=== PATIENT | female | born 1995 | race Caucasian/White ===

== ENCOUNTER 2024-07-14 07:09 | Day surgery (SDC) | payer MEDICAID, OTHER ==
[2024-07-11 12:04] VITALS: BMI 28.3
[2024-07-14 07:29] VITALS: RESP 16; TEMP 97.2
[2024-07-14] MEDS: LACTATED RINGERS 1,000 ML IV SCH (07:43)
[2024-07-14] MEDS: IV FLUID CONTINUATION 1,000 ML IV ONE (07:46)
[2024-07-14] MEDS ORDERED: LIDOCAINE 1% INJ 10MG/ML (20 ML MDV) ONE (07:52)
[2024-07-14] MEDS ORDERED: PROPOFOL 10 MG/ML 20 ML VIAL IV ONE (07:52)
--- NOTE | 2024-07-14 08:08 | P.PCN ---
Date of Procedure: 07/14/24 Procedure(s) Performed: Brief history: Patient is a pleasant 29-year-old white female scheduled for an elective upper endoscopy as well as colonoscopy as a part of evaluation of abdominal pain and change in bowel habits for the last 3 years duration. He has chronic diarrhea with 3-4 bowel movements daily but no blood or mucus in the stool. Recent testing revealed positive serology for celiac disease. Procedure performed: Esophagogastroduodenoscopy with biopsy Colonoscopy with biopsy Preoperative diagnosis: Abdominal pain Chronic diarrhea Anesthesia: MAC Procedure: After informed consent was obtained from the patient was brought into the endoscopy unit and IV sedation was administered by anesthesia under continuous monitoring. Initially upper endoscopy was done. The Olympus GF 160 video endoscope was inserted inserted into the mouth and esophagus intubated without any difficulty and was gradually advanced into the stomach and duodenum and carefully examined. The bulb and second part of the duodenum appeared normal. Biopsies were done from the duodenum to rule out celiac disease. The scope was then withdrawn into the stomach adequately insufflated with air and upon careful examination the antrum and mild gastritis and biopsies were done from this area. Mucosa d body, cardia and fundus appeared normal. The scope was then withdrawn into the esophagus. The GE junction was located at 40 cm to the incisors. It appeared regular with no erythema erosions or ulcerations. Rest of the esophagus appeared normal. Patient tolerated the procedure well. At this time the patient continued to remain sedation. Initial digital rectal examination was normal. Olympus CF 160 video colonoscope was then inserted into the rectum and gradually advanced to the cecum without any difficulty. Careful examination was performed as the scope was gradually being withdrawn. The prep was excellent. Terminal ileum was intubated and 20 cm visualized appeared normal. The cecum, ascending colon, transverse colon, descending colon, sigmoid colon and rectum appeared normal. And biopsies were done from the ascending and descending colon rule out multiple/collagenous colitis retroflexion was performed in the rectum and no lesions were noted. Patient tolerated the procedure well. Impression: 1. Upper endoscopy revealed mild antral gastritis but no definite evidence of peptic ulcer disease 2. Colonoscopy is within normal limits with no active colorectal neoplasia Recommendations: Findings of this examination were discussed with the patient as well as her family. She was advised to follow-up with the biopsy results. Follow-up in the office in 2 weeks.
[2024-07-14 08:36] VITALS: BP 114/78; PULSE 58
== END 2024-07-14 08:55 | disposition home or self-care (01) ==
LOC: ORWHC2ENDO 07:09
PROVIDERS: ATTEND Internal Medicine Gastroenterology
DX: D72.820 Lymphocytosis (symptomatic) (principal); K31.9 Disease of stomach and duodenum, unspecified; K52.9 Noninfective gastroenteritis and colitis, unspecified; K90.0 Celiac disease
CPT/HCPCS: 81025; 45380; 43239; J2003; J2704; 88305